=== PATIENT | male | born 1975 | race African-American/Black ===

== ENCOUNTER 2020-10-22 17:30 | Emergency (ER) | payer BC ==
[~2020-10-22] VITALS: Ht 175.3 cm; Wt 113.4 kg
[~2020-10-22 17:30] MED LIST: ASA81BEC PO; ASPIRIN325 PO; CENTRUM SILVER1 EAC2 PO; CHONDROITIN SU250 MG PO; EFFIENT10 MG PO; GLUCOSAMINE 1,1 EACH PO; LIPITOR 20 MG T20 M1 PO; LOPRESSOR25 PO; MELOXICAM15 MG PO; NORCO 10-325 T1 EACH PO; QUINU10 PD; TRAMADOL 50 MG50 MG PO; ZOCOR 20 MG TAB20 M1 PO
[2020-10-22 18:10] LABS: ABSOLUTE NEUTROPHILS 4.3 thou/uL (1.4-8.2); BASOPHILS 0.9 % (0.0-2.0); EOSINOPHILS 1.3 % (0.0-3.0); HEMATOCRIT 46.3 % (42.0-52.0); HEMOGLOBIN 15.9 gm/dL (14.0-18.0); LYMPHOCYTES 26.2 % (24.0-44.0); MCHC 34.3 g/dL (28.0-37.0); MCV 93.2 fL (80.0-100.0); MONOCYTES 6.6 % (1.0-8.0); PLATELET COUNT 233 thou/uL (150-400); RBC 4.97 mil/uL (4.50-6.00); RDW 13.8 % (10.5-14.5); WBC 6.7 thou/uL (4.0-11.0)
[2020-10-22 18:20] LABS: ANION GAP 10 mmol/L (7-16); BUN 11 mg/dL (7-18); CALCIUM 9.3 mg/dL (8.5-10.1); CHLORIDE 104 mmol/L (98-107); CO2 28 mmol/L (21-32); CREATININE 1.1 mg/dL (0.7-1.3); GLUCOSE 133 mg/dL (74-106); POTASSIUM 3.9 mmol/L (3.5-5.1); SODIUM 142 mmol/L (136-145)
[2020-10-22 18:32] LABS: TROPONIN-I <0.06 ng/mL (<0.06)
[2020-10-22] MEDS ORDERED: CHILDREN'S ASPI81 M1 PO (18:51)
[2020-10-22] MEDS ORDERED: ATORVASTATIN CA80 MG PO (18:51)
[2020-10-22] MEDS ORDERED: METOPROLOL TART25 MG PO (18:51)
[2020-10-22 19:19] VITALS: BP 145/91
--- NOTE | 2020-10-23 07:05 | EKG ---
[place] [address] [facility] [place] [address] ELECTROCARDIOGRAM REPORT Name: ZENA GARZA Room #: DEP Shane#: [id number] Admission: 10/22/20 Attend Phys: Discharge: 10/22/20 Date of : 71 Report #: [id number] [facility] ED Test Date: 2020-10-22 Test Time: 17:43:16 Pat Name: ZENA GARZA Department: Room: Gender: Education And Outreach Coordinator: kallie : 1975 Requested By: Kenneth Flannery Order Number: [id number] MD: Raoul Lange Measurements Intervals [place] Rate: 95 P: 12 W[place]: 172 QRS: -27 QRSD: 90 T: 5 QT: 346 QTc: 435 Interpretive Statements Sinus rhythm Left ventricular hypertrophy Borderline T abnormalities, inferior leads Compared to ECG 10/30/2013 06:52:50 Left ventricular hypertrophy now present T-wave abnormality now present Left bundle-branch block no longer present Electronically Signed On 10-23-2020 7:05:10 CDT by Raoul Lange [email or web address] <ELECTRONICALLY SIGNED> By: Raoul Lange MD, [facility] 10/23/20704 42 42 Raoul Lange MD, FACC /EPI
== END 2020-10-22 19:20 | disposition left against medical advice (07) ==
LOC: ER 17:30
PROVIDERS: Nurse Practitioner
DX: R07.89 Other chest pain (principal); E66.9 Obesity, unspecified; E78.00 Pure hypercholesterolemia, unspecified; Z79.82 Long term (current) use of aspirin; Z79.899 Other long term (current) drug therapy